=== PATIENT | female | born 1990 | race Caucasian/White ===

== ENCOUNTER 2022-08-26 16:04 | Emergency (ER) | payer MEDICAID ==
[~2022-08-26] VITALS: Ht 160 cm; Wt 62.0 kg
[2022-08-26] MEDS ORDERED: BACITRACIN ZINC OINT UDPKT TOP ONE (20:45)
[2022-08-26] MEDS ORDERED: TETANUS, DIPHTHERIA, PERTUSSIS VAC/PF 0.5ML (>10YR OLD) IM ONE (20:45)
[2022-08-26 21:00] VITALS: BP 112/78
== END 2022-08-26 21:00 | disposition home or self-care (01) ==
LOC: ER 16:04
DX: S61.012A Laceration without foreign body of left thumb without damage to nail, initial encounter (principal); W26.8XXA Contact with other sharp object(s), not elsewhere classified, initial encounter; Y93.89 Activity, other specified; Y92.012 Bathroom of single-family (private) house as the place of occurrence of the external cause
CPT/HCPCS: 12001; 90471; 90715; 99283; Z7610